=== PATIENT | male | born 1980 | race Two or more races ===

== ENCOUNTER 2023-11-07 15:03 | Inpatient (IN) | payer MEDICAID ==
[~2023-11-07] VITALS: Ht 190.5 cm; Wt 136.8 kg
[2023-11-07 16:20] LABS: BASOPHILS % (AUTO) 0.7 % (0-1); EOSINOPHILS # (AUTO) 0.1 X10'3 (0-0.9); EOSINOPHILS % (AUTO) 1.1 % (0-6); HEMATOCRIT 47.4 % (42.0-52.0); HEMOGLOBIN 16.4 g/dl (14.0-17.9); LYMPHOCYTES # (AUTO) 0.8 X10'3 (1.1-4.8); LYMPHOCYTES % (AUTO) 15.4 % (21-51); MEAN CORPUSCULAR HGB CONC 34.6 g/dL (33.0-36.5); MEAN CORPUSCULAR VOLUME 86.6 FL (78-98); MEAN PLATELET VOLUME 7.6 FL (7.4-10.4); MONOCYTES # (AUTO) 0.3 X10'3 (0-0.9); MONOCYTES % (AUTO) 5.6 % (2-12); NEUTROPHILS # (AUTO) 3.9 X10'3 (1.8-7.7); NEUTROPHILS % (AUTO) 77.2 % (42-75); PLATELET COUNT 215 X10'3 (140-440); RED BLOOD COUNT 5.47 X10'6 (4.70-6.10); RED CELL DISTRIBUTION WIDTH 14.1 % (11.5-14.5)
[2023-11-07] MEDS ORDERED: acetaminophen 325mg tablet PO PRN (16:30)
[2023-11-07] MEDS ORDERED: potassium Cl 20 mEq SR tablet PO PRN (16:30)
[2023-11-07] MEDS ORDERED: potassium Cl 40MEQ/1/2NS 520ml 520 ML IV PRN (16:30)
[2023-11-07] MEDS ORDERED: morphine 2 MG/ML inj. syringe IV PRN (16:30)
[2023-11-07] MEDS ORDERED: magnesium 2GM in 50ml NS 50 ML IV PRN (16:30)
[2023-11-07] MEDS ORDERED: magnesium Cl slow-release 64mg tablet PO PRN (16:30)
[2023-11-07] MEDS ORDERED: magnesium 4gm in 100ml NS 100 ML IV PRN (16:30)
[2023-11-07 16:45] LABS: ALBUMIN 3.7 G/DL (3.4-5.0); ANION GAP 6 (8-16); BLOOD UREA NITROGEN 8 MG/DL (7-18); BUN/CREATININE RATIO 8.5 (10.0-20.0); CALCIUM 8.1 MG/DL (8.5-10.1); CHLORIDE 106 MMOL/L (99-107); CREATININE 0.94 MG/DL (0.60-1.10); GLUCOSE 101 MG/DL (70-104); POTASSIUM 4.1 MMOL/L (3.5-5.1); SODIUM 141 MMOL/L (135-145); TOTAL CARBON DIOXIDE 29.1 MMOL/L (24-32); eCRCL 120 ML/MIN; eGFR 87 ML/MIN
[2023-11-07] MEDS: normal saline 1000ml 1,000 ML IV SCH (17:07)
[2023-11-07] MEDS ORDERED: NO HOME MEDS (17:52)
[2023-11-07] MEDS: piperacillin/tazo 3.375gm/50ml 50 ML IV SCH (17:58)
[2023-11-07] MEDS: heparin, porcine 5000 units/ml vial SQ SCH (20:00)
[2023-11-07] MEDS: ondansetron/PF 4mg/2ml inj IV PRN (21:11)
[2023-11-07 21:50] VITALS: BP 150/83; PULSE 48; RESP 18; TEMP 97.2; O2SAT 95
[2023-11-07 22:00] VITALS: RESP 18; O2SAT 95
[2023-11-08] VITALS (13 sets, daily range): BP systolic 123–159; BP diastolic 74–87; PULSE 39–60; RESP 11–18; TEMP 96.8–98; O2SAT 95–100
[2023-11-08 06:59] LABS: EOSINOPHILS # (AUTO) 0.1 X10'3 (0-0.9); EOSINOPHILS % (AUTO) 3.3 % (0-6); HEMATOCRIT 45.7 % (42.0-52.0); HEMOGLOBIN 15.7 g/dl (14.0-17.9); LYMPHOCYTES # (AUTO) 0.7 X10'3 (1.1-4.8); MEAN CORPUSCULAR HGB CONC 34.4 g/dL (33.0-36.5); MEAN CORPUSCULAR VOLUME 87.1 FL (78-98); MEAN PLATELET VOLUME 7.5 FL (7.4-10.4); MONOCYTES # (AUTO) 0.2 X10'3 (0-0.9); MONOCYTES % (AUTO) 5.7 % (2-12); NEUTROPHILS # (AUTO) 3.1 X10'3 (1.8-7.7); PLATELET COUNT 189 X10'3 (140-440); RED BLOOD COUNT 5.25 X10'6 (4.70-6.10); RED CELL DISTRIBUTION WIDTH 14.2 % (11.5-14.5); WHITE BLOOD COUNT 4.3 X10'3 (4.5-11.0)
[2023-11-08 07:17] LABS: ALANINE AMINOTRANSFERASE 499 U/L (12-78); ALBUMIN 3.4 G/DL (3.4-5.0); ALKALINE PHOSPHATASE 98 IU/L (46-116); ANION GAP 7 (8-16); ASPARTATE AMINO TRANSFERASE 213 U/L (10-37); BILIRUBIN,TOTAL 4.8 MG/DL (0.1-1.0); BLOOD UREA NITROGEN 8 MG/DL (7-18); BUN/CREATININE RATIO 8.3 (10.0-20.0); CALCIUM 8.2 MG/DL (8.5-10.1); CHLORIDE 107 MMOL/L (99-107); CREATININE 0.96 MG/DL (0.60-1.10); GLUCOSE 95 MG/DL (70-104); LIPASE 147 U/L (16-77); POTASSIUM 3.7 MMOL/L (3.5-5.1); SODIUM 143 MMOL/L (135-145); eCRCL 117 ML/MIN; eGFR 85 ML/MIN
[2023-11-08 07:44] LABS: ALBUMIN/GLOBULIN RATIO 1.1 (1.1-1.5); TOTAL PROTEIN 6.6 G/DL (6.4-8.2)
[2023-11-08] MEDS ORDERED: bisacodyl 10mg suppository rectal RC PRN (08:50)
[2023-11-08] MEDS: SINCALIDE IV ONE (09:26)
[2023-11-08] MEDS: NORMAL SALINE IV ONE (09:26)
[2023-11-08] MEDS: pneumococcal 23-VAL P-sac vacc 25 mcg/0.5ml vial IMVAC ONE (11:29)
[2023-11-08] MEDS: acetaminophen 325mg tablet PO PRN (13:02)
[2023-11-08] MEDS ORDERED: MIDAZolam 1 MG/ML 5ML VIAL ONE ×2 (15:34→15:35)
[2023-11-08] MEDS ORDERED: fentaNYL/PF 50MCG/1 ML 2ML syringe ONE (15:34)
[2023-11-08] MEDS ORDERED: glucagon, human recombinant 1mg kit ONE (15:34)
[2023-11-08] MEDS ORDERED: iohexol 300mg/ml 100ml inj. ONE (15:35)
[2023-11-08] MEDS ORDERED: LIDOcaine 2% Viscous 15ml cup ONE (15:35)
[2023-11-08] MEDS: polyethylene glycol 3350 17gm powd pack PO SCH (20:10)
[2023-11-08] MEDS: HYDROcodone/acetaminophen 10/325mg tab PO PRN (21:50)
[2023-11-08] MEDS: morphine 2 MG/ML inj. syringe IV PRN (22:55)
[2023-11-09 05:00] VITALS: BP 133/74; PULSE 56; RESP 17; TEMP 98.3; O2SAT 97
[2023-11-09 07:39] LABS: BASOPHILS % (AUTO) 0.6 % (0-1); EOSINOPHILS # (AUTO) 0.1 X10'3 (0-0.9); EOSINOPHILS % (AUTO) 1.3 % (0-6); HEMATOCRIT 43.6 % (42.0-52.0); LYMPHOCYTES # (AUTO) 0.7 X10'3 (1.1-4.8); MEAN CORPUSCULAR HEMOGLOBIN 29.8 PG (27.0-31.0); MEAN CORPUSCULAR HGB CONC 34.3 g/dL (33.0-36.5); MEAN CORPUSCULAR VOLUME 86.8 FL (78-98); MEAN PLATELET VOLUME 7.8 FL (7.4-10.4); MONOCYTES # (AUTO) 0.2 X10'3 (0-0.9); NEUTROPHILS % (AUTO) 83.1 % (42-75); PLATELET COUNT 189 X10'3 (140-440); RED BLOOD COUNT 5.02 X10'6 (4.70-6.10); RED CELL DISTRIBUTION WIDTH 14.1 % (11.5-14.5); WHITE BLOOD COUNT 6.1 X10'3 (4.5-11.0)
[2023-11-09 07:58] LABS: ALANINE AMINOTRANSFERASE 347 U/L (12-78); ALBUMIN 3.2 G/DL (3.4-5.0); ALBUMIN/GLOBULIN RATIO 1.1 (1.1-1.5); ALKALINE PHOSPHATASE 87 IU/L (46-116); ANION GAP 6 (8-16); ASPARTATE AMINO TRANSFERASE 87 U/L (10-37); BILIRUBIN,TOTAL 2.8 MG/DL (0.1-1.0); BLOOD UREA NITROGEN 4 MG/DL (7-18); BUN/CREATININE RATIO 4.2 (10.0-20.0); CALCIUM 7.6 MG/DL (8.5-10.1); CHLORIDE 106 MMOL/L (99-107); CREATININE 0.96 MG/DL (0.60-1.10); GLUCOSE 92 MG/DL (70-104); POTASSIUM 3.8 MMOL/L (3.5-5.1); SODIUM 139 MMOL/L (135-145); TOTAL CARBON DIOXIDE 26.9 MMOL/L (24-32); TOTAL PROTEIN 6.2 G/DL (6.4-8.2); eCRCL 117 ML/MIN; eGFR 85 ML/MIN
[2023-11-09 10:02] VITALS: BP 112/82; PULSE 55; RESP 16; TEMP 97.1; O2SAT 97
[2023-11-09 18:00] VITALS: BP 157/90; PULSE 52; RESP 17; TEMP 97.7; O2SAT 98
[2023-11-09 20:00] VITALS: RESP 17; O2SAT 98
[2023-11-09 22:00] VITALS: BP 139/81; PULSE 52; RESP 19; TEMP 98.1; O2SAT 97
[2023-11-09 22:44] VITALS: BP 139/81; PULSE 52; RESP 19; TEMP 98.1; O2SAT 97
[2023-11-10] VITALS (16 sets, daily range): BP systolic 137–169; BP diastolic 75–99; PULSE 53–74; RESP 10–21; TEMP 97.9–98; O2SAT 90–100
[2023-11-10 06:28] LABS: BASOPHILS % (AUTO) 0.5 % (0-1); EOSINOPHILS # (AUTO) 0.1 X10'3 (0-0.9); EOSINOPHILS % (AUTO) 2.6 % (0-6); HEMOGLOBIN 15.1 g/dl (14.0-17.9); LYMPHOCYTES # (AUTO) 0.9 X10'3 (1.1-4.8); LYMPHOCYTES % (AUTO) 17.5 % (21-51); MEAN CORPUSCULAR HEMOGLOBIN 29.9 PG (27.0-31.0); MEAN CORPUSCULAR HGB CONC 34.3 g/dL (33.0-36.5); MEAN CORPUSCULAR VOLUME 87.2 FL (78-98); MEAN PLATELET VOLUME 7.9 FL (7.4-10.4); MONOCYTES # (AUTO) 0.3 X10'3 (0-0.9); MONOCYTES % (AUTO) 5.8 % (2-12); NEUTROPHILS # (AUTO) 3.9 X10'3 (1.8-7.7); NEUTROPHILS % (AUTO) 73.6 % (42-75); PLATELET COUNT 174 X10'3 (140-440); RED BLOOD COUNT 5.05 X10'6 (4.70-6.10); RED CELL DISTRIBUTION WIDTH 13.7 % (11.5-14.5); WHITE BLOOD COUNT 5.3 X10'3 (4.5-11.0)
[2023-11-10 06:35] LABS: ALANINE AMINOTRANSFERASE 258 U/L (12-78); ALBUMIN 3.3 G/DL (3.4-5.0); ALKALINE PHOSPHATASE 86 IU/L (46-116); ANION GAP 10 (8-16); ASPARTATE AMINO TRANSFERASE 46 U/L (10-37); BILIRUBIN,TOTAL 2.3 MG/DL (0.1-1.0); BLOOD UREA NITROGEN 3 MG/DL (7-18); BUN/CREATININE RATIO 3.7 (10.0-20.0); CALCIUM 8.2 MG/DL (8.5-10.1); CHLORIDE 102 MMOL/L (99-107); CREATININE 0.82 MG/DL (0.60-1.10); GLUCOSE 74 MG/DL (70-104); POTASSIUM 3.3 MMOL/L (3.5-5.1); SODIUM 139 MMOL/L (135-145); TOTAL CARBON DIOXIDE 27.3 MMOL/L (24-32); TOTAL PROTEIN 6.7 G/DL (6.4-8.2); eCRCL 137 ML/MIN; eGFR > 90 ML/MIN
[2023-11-10] MEDS: LIDOcaine 1% (10mg/ml)w/preservative inj. 20ml MDV ONE (07:42)
[2023-11-10] MEDS: INDOCYANINE GREEN 25 MG/10 ML VIAL IV STA (08:32)
[2023-11-10] MEDS: INDOCYANINE GREEN 25 MG/10 ML VIAL IV ONE (08:32)
[2023-11-10] MEDS: dextrose 50%-water 50ml dispensing syringe IV ONE (08:37)
[2023-11-10] MEDS ORDERED: morphine 2 MG/ML inj. syringe IV PRN (09:55)
[2023-11-10] MEDS ORDERED: meperidine/PF 25mg/ml syringe IV PRN ×2 (09:55)
[2023-11-10] MEDS: ringers solution, lacted 1,000 ML IV SCH (09:55)
[2023-11-10] MEDS ORDERED: sevoflurane 250ml liquid IH ONE (09:57)
[2023-11-10] MEDS ORDERED: midazolam 1 mg/ML 2ml injection ONE (10:01)
[2023-11-10] MEDS ORDERED: propofol inj 20 ML IV ONE (10:01)
[2023-11-10] MEDS ORDERED: fentaNYL/PF 50MCG/1 ML 2ML syringe ONE (10:01)
[2023-11-10] MEDS ORDERED: rocuronium 10mg/ml inj IV ONE (10:01)
[2023-11-10] MEDS ORDERED: ceFAZolin 1000mg inj ONE ×3 (10:14)
[2023-11-10] MEDS ORDERED: dexamethasone sod phosphate 4mg/ml inj. ONE (10:22)
[2023-11-10] MEDS: LIDOcaine 1% 30ml preserv. free vial SQ ONE (10:30)
[2023-11-10] MEDS: BUPIVAcaine/PF 2.5mg/ml (0.25%) 10ml vial ONE (10:33)
[2023-11-10] MEDS ORDERED: naloxone 0.4 mg/ml inj IV PRN (11:20)
[2023-11-10] MEDS ORDERED: neostigmine methylsulfate 1 MG/ML 10ml vial ONE (11:20)
[2023-11-10] MEDS ORDERED: glycopyrrolate 0.2mg/ml inj ONE (11:20)
[2023-11-10] MEDS: meperidine/PF 25mg/ml syringe IV PRN (11:41)
[2023-11-10] MEDS: ondansetron/PF 4mg/2ml inj IV PRN (11:48)
[2023-11-10] MEDS: dextrose 5%-lactated ringers 1,000 ML IV SCH (11:50)
[2023-11-10] MEDS: proCHLORperazine 10 MG/2 ml inj IV PRN (12:07)
[2023-11-10] MEDS: morphine 4 MG/ML inj SYRINge IV PRN (12:12)
[2023-11-10] MEDS ORDERED: HYDR-3964 PO (12:18)
[2023-11-10] MEDS: potassium Cl 20 mEq SR tablet PO PRN (16:15)
[2023-11-10] MEDS ORDERED: potassium Cl 20 mEq SR tablet PO PRN (16:35)
[2023-11-10] MEDS ORDERED: magnesium 4gm in 100ml NS 100 ML IV PRN (16:35)
[2023-11-10] MEDS ORDERED: potassium Cl 40MEQ/1/2NS 520ml 520 ML IV PRN (16:35)
[2023-11-10] MEDS ORDERED: magnesium Cl slow-release 64mg tablet PO PRN (16:35)
[2023-11-10] MEDS ORDERED: magnesium 2GM in 50ml NS 50 ML IV PRN (16:35)
[2023-11-10] MEDS: K and/or MAG REPLACEMENT MC SCH (20:00)
[2023-11-10] MEDS: HYDROcodone/acetaminophen 5mg/325mg tablet PO PRN (20:39)
[2023-11-11] MEDS: potassium Cl 20 mEq SR tablet PO PRN (01:49)
[2023-11-11 06:00] VITALS: BP 119/65; PULSE 48; RESP 16; TEMP 97.6; O2SAT 96
[2023-11-11 06:12] LABS: BASOPHILS % (AUTO) 0.1 % (0-1); EOSINOPHILS % (AUTO) 0.1 % (0-6); HEMATOCRIT 44.2 % (42.0-52.0); HEMOGLOBIN 15.2 g/dl (14.0-17.9); LYMPHOCYTES # (AUTO) 0.6 X10'3 (1.1-4.8); LYMPHOCYTES % (AUTO) 7.9 % (21-51); MEAN CORPUSCULAR HEMOGLOBIN 29.8 PG (27.0-31.0); MEAN CORPUSCULAR HGB CONC 34.3 g/dL (33.0-36.5); MEAN CORPUSCULAR VOLUME 86.8 FL (78-98); MEAN PLATELET VOLUME 8.1 FL (7.4-10.4); MONOCYTES # (AUTO) 0.4 X10'3 (0-0.9); MONOCYTES % (AUTO) 5.5 % (2-12); NEUTROPHILS # (AUTO) 6.4 X10'3 (1.8-7.7); NEUTROPHILS % (AUTO) 86.4 % (42-75); PLATELET COUNT 186 X10'3 (140-440); RED CELL DISTRIBUTION WIDTH 14.1 % (11.5-14.5); WHITE BLOOD COUNT 7.4 X10'3 (4.5-11.0)
[2023-11-11 06:30] LABS: ALANINE AMINOTRANSFERASE 202 U/L (12-78); ALBUMIN 3.3 G/DL (3.4-5.0); ALBUMIN/GLOBULIN RATIO 0.9 (1.1-1.5); ALKALINE PHOSPHATASE 87 IU/L (46-116); ANION GAP 8 (8-16); ASPARTATE AMINO TRANSFERASE 35 U/L (10-37); BILIRUBIN,TOTAL 1.3 MG/DL (0.1-1.0); BLOOD UREA NITROGEN 2 MG/DL (7-18); BUN/CREATININE RATIO 2.5 (10.0-20.0); CALCIUM 8.5 MG/DL (8.5-10.1); CHLORIDE 104 MMOL/L (99-107); CREATININE 0.79 MG/DL (0.60-1.10); GLUCOSE 133 MG/DL (70-104); MAGNESIUM 1.9 MG/DL (1.5-2.4); POTASSIUM 3.7 MMOL/L (3.5-5.1); SODIUM 140 MMOL/L (135-145); TOTAL CARBON DIOXIDE 28.3 MMOL/L (24-32); TOTAL PROTEIN 6.9 G/DL (6.4-8.2); eCRCL 143 ML/MIN; eGFR > 90 ML/MIN
[2023-11-11 08:00] VITALS: RESP 16; O2SAT 96
[2023-11-11 10:00] VITALS: BP 147/87; PULSE 55; RESP 16; TEMP 98.7; O2SAT 96
== END 2023-11-11 11:38 | disposition home or self-care (01) | DRG 263 ==
LOC: ER 15:03 → UNDOADMIN 16:37 → ED HOLD 16:37 → ORTHO 4S 21:45 → SUR 3N 11-10 19:08
PROVIDERS: ADMIT Internal Medicine; ATTEND Internal Medicine
PROC: 0DJ08ZZ Inspection of Upper Intestinal Tract, Via Natural or Artificial Opening Endoscopic (ICD-10-PCS; 2023-11-08)
PROC: 0FC98ZZ Extirpation of Matter from Common Bile Duct, Via Natural or Artificial Opening Endoscopic (ICD-10-PCS; 2023-11-08)
PROC: CF141ZZ Planar Nuclear Medicine Imaging of Gallbladder using Technetium 99m (Tc-99m) (ICD-10-PCS; 2023-11-08)
PROC: BF532Z0 Other Imaging of Gallbladder and Bile Ducts using Fluorescing Agent, Intraoperative (ICD-10-PCS; 2023-11-10)
PROC: 8E0W4CZ Robotic Assisted Procedure of Trunk Region, Percutaneous Endoscopic Approach (ICD-10-PCS; 2023-11-10)
PROC: 0FT44ZZ Resection of Gallbladder, Percutaneous Endoscopic Approach (ICD-10-PCS; principal; 2023-11-10 09:57)
DX: K85.10 Biliary acute pancreatitis without necrosis or infection (principal); K80.71 Calculus of gallbladder and bile duct without cholecystitis with obstruction; F17.290 Nicotine dependence, other tobacco product, uncomplicated; R00.1 Bradycardia, unspecified; E66.01 Morbid (severe) obesity due to excess calories; Z68.37 Body mass index [BMI] 37.0-37.9, adult; Z80.3 Family history of malignant neoplasm of breast
CPT/HCPCS: 36415; 43262; 43264; 74181; 76700; 78227; 80048; 80053; 82948; 83605; 83690; 83735; 85025; 87040; 87081; 90732; 93005; 99152; 99153; 99285; A4215; A4615; A4618; A4620; A6258; A7000; A9537; C1769; G0378; J0690; J0780; J1100; J1610; J1644; J2175; J2250; J2270; J2405; J2543; J2704; J2710; J2805; J3010; J3490; J7030; J7120; J7121; Q9967